=== PATIENT | male | born 1950 | race Caucasian/White ===

== ENCOUNTER → 2018-03-01 | Outpatient (CLI) | payer OTHER ==
[~2018-03-01] MED LIST: AZIT250 PO; BENZ100A PO; CODBUTASA PO; Cialis20 MG; IBUP800; OXYACE5T PO; Omeprazole20 M1; PROACE100 PO
== END ==
LOC: LAB SHORT 08:20 → LAB EV 08:20
DX: J02.9 Acute pharyngitis, unspecified (principal)
CPT/HCPCS: 87070

== ENCOUNTER 2018-12-31 07:00 | Emergency (ER) | payer OTHER ==
[~2018-12-31] VITALS: Ht 172.7 cm; Wt 90.7 kg
[2018-12-31 07:47] LABS: BASOPHILS ABSOLUTE AUTO 0.02 K/mm3 (0.00-0.23); BASOPHILS PERCENT AUTO 0 % (0-2); EOSINOPHILS ABSOLUTE AUTO 0.11 K/mm3 (0.00-0.68); EOSINOPHILS PERCENT AUTO 1 % (0-6); Hematocrit 45.8 % (37.0-53.0); Hemoglobin 15.4 g/dL (13.5-17.5); IMMATURE GRAN ABSOLUTE AUTO 0.03 K/mm3 (0.00-0.10); IMMATURE GRAN PERCENT AUTO 0 % (0-1); LYMPHOCYTES ABSOLUTE AUTO 1.63 K/mm3 (0.84-5.20); LYMPHOCYTES PERCENT AUTO 14 % (21-46); MONOCYTES ABSOLUTE AUTO 1.11 K/mm3 (0.16-1.47); MONOCYTES PERCENT AUTO 10 % (4-13); Mean Corpuscular HGB Conc 33.6 g/dL (31.5-36.5); Mean Corpuscular Volume 86 fL (80-100); NEUTROPHILS ABSOLUTE AUTO 8.62 K/mm3 (1.96-9.15); NEUTROPHILS PERCENT AUTO 75 % (41-73); Platelet Count 260 K/mm3 (150-400); RDW Coefficient Variation 13.6 % (11.7-14.2); RDW Standard Deviation 42.5 fL (35.1-46.3); Red Blood Cell Count 5.31 M/mm3 (4.30-5.90); White Blood Cell Count 11.52 K/mm3 (4.00-11.30)
[2018-12-31 08:08] LABS: Alanine Aminotransfer (ALT/SGP 20 U/L (12-78); Albumin, Blood 4.1 g/dL (3.4-5.0); Albumin/Globulin Ratio 1.2 (0.8-1.8); Alk Phos 47 U/L (50-136); Anion Gap 6 mmol/L (6-16); Aspartate Aminotrans (AST/SGOT 16 U/L (12-37); Bilirubin, Total 0.8 mg/dL (0.1-1.0); Blood Urea Nitrogen 14 mg/dL (8-24); Bun/Creatinine Ratio 15.6 (12.0-20.0); CO2, Blood 24 mmol/L (21-32); Chloride, Blood 106 mmol/L (98-108); Globulin, Blood 3.5 g/dL (2.2-4.0); Glomerular Filtration Rate >60 (60-); Glucose, Blood 111 mg/dL (70-99); Potassium, Blood 4.1 mmol/L (3.5-5.5); Sodium, Blood 136 mmol/L (136-145); Total Protein, Blood 7.6 g/dL (6.4-8.2)
[2018-12-31 08:43] LABS: Source, Urine Clean Catch
[2018-12-31 08:47] LABS: Appearance, Urine Clear (Clear); Bilirubin, Urine Neg (Neg); Blood, Urine Neg (Neg); Color, Urine Yellow (P-Yellow); Glucose Qualitative, Urine Neg (Neg); Ketones, Urine Neg (Neg); Leukocyte Esterase, Urine Neg (Neg); Nitrite, Urine Neg (Neg); Protein, Urine Neg (Neg); Urobilinogen, Urine NORM (Normal)
[2018-12-31] MEDS ORDERED: Augmentin 500-1 EACH PO (08:51)
[2018-12-31] MEDS ORDERED: ONDA4ODT MM (08:51)
[2019-03-11] MEDS ORDERED: BIOTIN1 MG PO (09:38)
== END 2018-12-31 09:18 | disposition home or self-care (01) ==
LOC: ER 07:00
PROVIDERS: Emergency Medicine
DX: K57.32 Diverticulitis of large intestine without perforation or abscess without bleeding (principal)
CPT/HCPCS: 74176; 80053; 81003; 83690; 85025; 96361; 96374; 99284-25; J2405; J7030

== ENCOUNTER 2019-03-19 07:31 | Day surgery (SDC) | payer OTHER ==
[~2019-03-19] VITALS: Ht 172.7 cm; Wt 87.4 kg
[~2019-03-19 07:31] MED LIST changes: +Augmentin 500-1 EACH PO; +BIOTIN1 MG PO; +ONDA4ODT MM
--- NOTE | 2019-03-19 09:36 | NUR ---
03/19/19 0936 Violeta Durant (Zaira PREVIOUS CASE RUNNING LONG. PT NOTIFIED OF DELAY. PT RESTING COMFORTABLY IN BED, AT BEDSIDE. CALL LIGHT WITHIN REACH.
--- NOTE | 2019-03-19 11:00 | NUR ---
03/19/19 1100 Violeta Durant SIMETHICONE USED DURING PROCEDURE.
== END 2019-03-19 11:26 | disposition home or self-care (01) ==
LOC: ORSCSDS 07:31
PROVIDERS: Surgery
PROC: 0DB48ZX Excision of Esophagogastric Junction, Via Natural or Artificial Opening Endoscopic, Diagnostic (ICD-10-PCS; principal; 2019-03-19 09:00)
PROC: 0DB78ZX Excision of Stomach, Pylorus, Via Natural or Artificial Opening Endoscopic, Diagnostic (ICD-10-PCS; principal; 2019-03-19 09:00)
DX: R13.10 Dysphagia, unspecified (principal); K21.0 Gastro-esophageal reflux disease with esophagitis; K29.70 Gastritis, unspecified, without bleeding; K31.7 Polyp of stomach and duodenum; Z87.19 Personal history of other diseases of the digestive system; K57.30 Diverticulosis of large intestine without perforation or abscess without bleeding
CPT/HCPCS: 88305; 88342; J2704; J7120

== ENCOUNTER 2019-05-10 08:01 | Day surgery (SDC) | payer OTHER ==
[~2019-05-10] VITALS: Ht 170.2 cm; Wt 90.0 kg
--- NOTE | 2019-05-10 08:44 | NUR ---
Ambulatory in Day Surgery Surgical site prepped with 2% Chlorhexidine cloth wipe. History, Chart, Medications and Allergies reviewed before start of procedure.Lungs clear T/O to Auscultation. Patient confirms NPO status and agrees with scheduled surgery.
--- NOTE | 2019-05-10 14:04 | NUR ---
"DAY SURGERY RN | DISCHARGED VSS. A/O. PAIN MEDS GIVEN PER ORDERS. NO NAUSEA AT THIS TIME. SITES C/D/I. DISCHARGE INSTRUCTIONS, RX, AND ICE GIVEN TO PATIENT WITH FAMILY PRESENT. NO ISSUES IN DAY SURGERY STEP DOWN. PATIENT ABLE TO AMBULATE SELF. TOLERATING PO FLUIDS AND FOOD. TAKEN IN WHEELCHAIR TO FRONT ENTRANCE BY VOLUNTEER. IS RIDE HOME."
--- NOTE | 2019-05-13 09:14 | NUR ---
05/13/19 0913 Margo Oviedo VERIFICATIONS: EDIT CHART.
== END 2019-05-10 23:02 | disposition home or self-care (01) ==
LOC: ORSCMMR 08:01 → ORD 08:30 → ORSCMMR 08:30
PROVIDERS: Surgery
PROC: 8E0W4CZ Robotic Assisted Procedure of Trunk Region, Percutaneous Endoscopic Approach (ICD-10-PCS; principal; 2019-05-10 09:45)
PROC: 0YUA4JZ Supplement Bilateral Inguinal Region with Synthetic Substitute, Percutaneous Endoscopic Approach (ICD-10-PCS; principal; 2019-05-10 09:45)
DX: K40.20 Bilateral inguinal hernia, without obstruction or gangrene, not specified as recurrent (principal)
CPT/HCPCS: 49650; S2900; C1781; J0330; J0690; J1100; J1885; J2250; J2370; J2405; J2704; J3010; J7120

== ENCOUNTER 2020-04-01 10:34 | Day surgery (SDC) | payer OTHER ==
[~2020-04-01] VITALS: Ht 172.7 cm; Wt 84.9 kg
[~2020-04-01 10:34] MED LIST changes: +LIDO700A20 TOP
--- NOTE | 2020-04-01 11:44 | NUR ---
Ambulatory in Day Surgery History, Chart, Medications and Allergies reviewed before start of procedure. Lungs clear T/O to Auscultation. Patient confirms NPO status and agrees with scheduled surgery. Pre-Op teaching done. Pt verbalizes understanding.
--- NOTE | 2020-04-01 15:34 | NUR ---
1530-HAS SENSATION TO MID THIGH, NO LEG MOVEMENT. 321ML IN BLADDER PER SCANNER
--- NOTE | 2020-04-01 18:03 | NUR ---
ARRIVED FROM PACU AT 1614 PT IS ALERT AND ORIENTED X 4 WITH ON BEDSIDE. S/P RIGHT TKA WITH SPINAL. PT REPORTS NUMBNESS ON BLE, WITH STRONG PEDAL PULSES. PT DENIES SOB, CHEST PAIN/ PRESSURE, NO NAUSEA, NO VOMITING AND NO TINGLINGING SENSATION. PT TOLERATING CRACKERS AND PO FLUIDS, STS HE IS HUNGRY. R KNEE WITH JENI WRAPPED. CLEAN, DRY AND INTACT. VSS. DENIES R KNEE PAIN. IV ON LEFT AC, PATENT AND INFUSING WITH LR AND TXA.
--- NOTE | 2020-04-01 19:20 | NUR ---
SHIFT SUMMARY POD0 RIGHT TKA WITH SPINAL ANES. PT IS AOX4. VSS. PT REPORTS NUMBNESS ON BILATERAL LOW EXTREMITY. HE IS ABLE TO MOVE LEFT EXTREMITY. PT IS TOLERATING PO INTAKE WELL DENIES NAUSEA AND VOMITING. PT ALSO DENIES CHEST PAIN/ PRESSURE, NO TINGLING, NO SOB AND NO PAIN AT THE MOMENT. IV ON LEFT AC IS PATENT AND INFUSING WITH LR FLUIDS. PAIN MEDS ADMINISTERED FOR 15MG TORADOL. R KNEE W/ JENI WRAPPED, CDI. PT IS ON ROOM AIR, SPO2 OF 95. LUNGS ARE CLEAR. PEDAL AND RADIAL PULSE ARE STRONG. NO PASSING FLATUS, NO URINE OUT AND NO BM REPORTED.
[2020-04-02 04:48] LABS: BASOPHILS ABSOLUTE AUTO 0.02 K/mm3 (0.00-0.23); BASOPHILS PERCENT AUTO 0 % (0-2); EOSINOPHILS PERCENT AUTO 0 % (0-6); Hematocrit 40.3 % (37.0-53.0); Hemoglobin 13.2 g/dL (13.5-17.5); IMMATURE GRAN ABSOLUTE AUTO 0.07 K/mm3 (0.00-0.10); IMMATURE GRAN PERCENT AUTO 0 % (0-1); LYMPHOCYTES ABSOLUTE AUTO 0.96 K/mm3 (0.84-5.20); LYMPHOCYTES PERCENT AUTO 6 % (21-46); MONOCYTES ABSOLUTE AUTO 0.75 K/mm3 (0.16-1.47); MONOCYTES PERCENT AUTO 5 % (4-13); Mean Corpuscular HGB 29.4 pg (26.0-34.0); Mean Corpuscular HGB Conc 32.8 g/dL (31.5-36.5); Mean Corpuscular Volume 90 fL (80-100); Mean Platelet Volume 8.8 fL (9.1-12.4); NEUTROPHILS ABSOLUTE AUTO 14.61 K/mm3 (1.96-9.15); NEUTROPHILS PERCENT AUTO 89 % (41-73); Platelet Count 266 K/mm3 (150-400); RDW Coefficient Variation 13.7 % (11.7-14.2); RDW Standard Deviation 45.1 fL (35.1-46.3); Red Blood Cell Count 4.49 M/mm3 (4.30-5.90); White Blood Cell Count 16.41 K/mm3 (4.00-11.30)
[2020-04-02 05:08] LABS: Anion Gap 5 mmol/L (6-16); Blood Urea Nitrogen 20 mg/dL (8-24); Bun/Creatinine Ratio 22.4 (12.0-20.0); CO2, Blood 26 mmol/L (21-32); Calcium, Blood 9.2 mg/dL (8.5-10.1); Chloride, Blood 107 mmol/L (98-108); Creatinine, Blood 0.89 mg/dL (0.60-1.20); Glomerular Filtration Rate >60 (60-); Glucose, Blood 139 mg/dL (70-99); Potassium, Blood 4.6 mmol/L (3.5-5.5); Sodium, Blood 138 mmol/L (136-145)
--- NOTE | 2020-04-02 07:07 | NUR ---
SUMMARY PT VOIDING. TOLERATING PO. DENIES N/T TO EXT.PO PAIN MEDS REPORTED TO KEEP PAIN FROM RISING ABOVE LEVEL 2.PT UP IN HALLS WITH WALKER AND CONFERENCE SERVICES COORDINATOR. PT HOPING FOR DISCHARGE TODAY.
[2020-04-02] MEDS ORDERED: Aspir 8181 MG PO (07:28)
[2020-04-02] MEDS ORDERED: HYDR1TAB94 PO (07:32)
[2020-04-02] MEDS ORDERED: PROM25 PO (07:33)
[2020-04-02] MEDS ORDERED: SULTRIDS PO (07:34)
--- NOTE | 2020-04-02 12:41 | NUR ---
PAIN PT HAS HAD ELEVATED PAIN SINCE WORKING WITH THERAPY THIS MORNING. HE RATED HIS PAIN AT 10/10 AFTER WORKING WITH THERAPY. PT WAS SHAKING AND UNSTEADY ON HIS FEET AFTER THERAPY. HE ALSO REPORTED SOME NAUSEA AND C/O HICCUPS. PO PAIN MEDICATION WAS CHANGED TO ULTRAM SINCE PT WAS CONCERNED THAT NORCO MAY HAVE BEEN CAUSING HICCUPS. PT WAS GIVEN DILAUDID IV, ZOFRAN AND TORADOL, HE NOW RATES HIS PAIN AT 5/10 AND STATES IT IS TOLERABLE. NAUSEA IS BETTER WHEN PT IS AT REST BUT HAS SOME NAUSEA WHEN HE AMBULATES. HE STILL HAS SOME DIFFICULTY AMBULATING R/T PAIN AND IS SOME WHAT UNSTEADY WHEN BEARING WEAIGHT ON HIS OPPERATIVE LEG. WILL CONTINUE TO MONITOR.
--- NOTE | 2020-04-02 19:40 | NUR ---
SHIFT SUMMARY PT AOX4. HE DID NOT GET ENOUGH SLEEP LAST NIGHT. PT REPORTS WALKING IN THE HALLWAY X 3 LAST NIGHT. THIS MORNING HE WAS C/O OF SEVERE PAIN. PAIN MED GIVEN PER MD ORDER. PT STARTED EXPERIENCING HICCUPS, POSSIBLE ADVERSE EFFECT FROM NARCOTIC. REGLAN WAS ADMINSTERED, IT HELPED WITH HICCUPS AND INDIGESTION. PT TOLEARTATING PO INTAKE. ADEQUATE URINE OUTPUT. PT REPORTS FLATUS. HE DENIES NAUSEA, VOMITING, DIARRHEA, SOB, CHEST PAIN/PRESSURE AND NO DIZZINESS.
--- NOTE | 2020-04-03 05:18 | NUR ---
SHIFT SUMMARY R TKA POD2, A/O X4, VSS, TOLERATING PO, AMBULATING, VOIDING WELL, C/O SORE AREA IN KNEE, POLAR PACK IN PLACE, PAIN WELL MANAGED (SEE EMAR). CALL LIGHT IN REACH, WILL CONTINUE TO MONITOR AND REPORT TO ONCOMING DAY RN.
--- NOTE | 2020-04-03 14:18 | NUR ---
DC'D HOME, DC INSTRUCTIONS GIVEN TO PT AND , VERBALIZED UNDERSTANDING, PAIN MED RX CHANGED TO DILAUDID PT'S PICKED UP RX FROM DR. MAK'S OFFICE AND HAD IT FILLED, PT'S SAID SHE BROUGHT BACK PREVIOUSLY FILLED OXYCODONE TABS BACK TO [facility].
== END 2020-04-03 13:32 | disposition home or self-care (01) ==
LOC: ORSCMMR 10:34 → ORD 14:00 → ORSCMMR 14:00 → SURS 16:08 → ORD 17:15 → SURS 04-03 13:32 → ORSCMMR 04-03 13:32
PROVIDERS: Orthopaedic Surgery
DX: M17.11 Unilateral primary osteoarthritis, right knee (principal); E78.5 Hyperlipidemia, unspecified
CPT/HCPCS: 36415; 73560-RT; 80048; 83735; 85025; 88300; 97110; 97116; 97161; A9270; A9270-GY; C1713; C1776; J0171; J0690; J0735; J1100; J1170; J1885; J2250; J2370; J2405; J2704; J2765; J2795; J3010; J7120

== ENCOUNTER 2020-10-15 06:36 | Day surgery (SDC) | payer OTHER ==
[~2020-10-15] VITALS: Ht 172.7 cm; Wt 88.7 kg
[~2020-10-15 06:36] MED LIST changes: +Aspir 8181 MG PO; +HYDR1TAB94 PO; +PROM25 PO; +SULTRIDS PO
== END 2020-10-15 10:39 | disposition home or self-care (01) ==
LOC: ORSCSDS 06:36
PROVIDERS: Otolaryngology
PROC: 09BM0ZZ Excision of Nasal Septum, Open Approach (ICD-10-PCS; principal; 2020-10-15 08:00)
PROC: 09SL4ZZ Reposition Nasal Turbinate, Percutaneous Endoscopic Approach (ICD-10-PCS; principal; 2020-10-15 08:00)
DX: J34.2 Deviated nasal septum (principal); J34.3 Hypertrophy of nasal turbinates
CPT/HCPCS: J0171; J1100; J2765; J7120

== ENCOUNTER → 2021-09-21 | Outpatient (CLI) | payer OTHER | END | disposition home or self-care (01) | LOC: LAB SHORT 11:38 → PLD 11:38 | DX: L57.0 Actinic keratosis (principal) | CPT/HCPCS: 88305 ==

== ENCOUNTER → 2024-01-21 | Outpatient (CLI) | payer OTHER ==
[2024-01-21 10:42] LABS: BASOPHILS ABSOLUTE AUTO 0.02 K/mm3 (0.00-0.23); BASOPHILS PERCENT AUTO 0 % (0-2); EOSINOPHILS ABSOLUTE AUTO 0.14 K/mm3 (0.00-0.68); EOSINOPHILS PERCENT AUTO 3 % (0-6); Hematocrit 44.9 % (37.0-53.0); Hemoglobin 15.1 g/dL (13.5-17.5); IMMATURE GRAN ABSOLUTE AUTO 0.01 K/mm3 (0.00-0.10); IMMATURE GRAN PERCENT AUTO 0 % (0-1); LYMPHOCYTES PERCENT AUTO 21 % (21-46); MONOCYTES ABSOLUTE AUTO 0.46 K/mm3 (0.16-1.47); MONOCYTES PERCENT AUTO 8 % (4-13); Mean Corpuscular HGB 29.7 pg (26.0-34.0); Mean Corpuscular HGB Conc 33.6 g/dL (31.5-36.5); Mean Corpuscular Volume 88 fL (80-100); Mean Platelet Volume 8.5 fL (9.1-12.4); NEUTROPHILS ABSOLUTE AUTO 3.77 K/mm3 (1.96-9.15); NEUTROPHILS PERCENT AUTO 67 % (41-73); Platelet Count 249 K/mm3 (150-400); RDW Coefficient Variation 13.6 % (11.7-14.2); RDW Standard Deviation 44.3 fL (35.1-46.3); Red Blood Cell Count 5.08 M/mm3 (4.30-5.90)
[2024-01-21 10:54] LABS: Albumin, Blood 3.9 g/dL (3.4-5.0); Bilirubin, Total 0.3 mg/dL (0.1-1.0); Bun/Creatinine Ratio 14.3 (12.0-20.0); Calcium, Blood 9.4 mg/dL (8.5-10.1); Creatinine, Blood 0.98 mg/dL (0.60-1.20); Globulin, Blood 3.8 g/dL (2.2-4.0); Total Protein, Blood 7.7 g/dL (6.4-8.2)
== END | disposition home or self-care (01) ==
LOC: LAB SHORT 10:38 → LAB 10:38
PROVIDERS: Physician Assistant
DX: R10.32 Left lower quadrant pain (principal)
CPT/HCPCS: 80053; 85025

== ENCOUNTER 2024-07-02 06:58 | Emergency (ER) | payer OTHER ==
[~2024-07-02] VITALS: Ht 172.7 cm; Wt 83.9 kg
[2024-07-02 09:28] LABS: BASOPHILS ABSOLUTE AUTO 0.04 K/mm3 (0.00-0.23); BASOPHILS PERCENT AUTO 1 % (0-2); EOSINOPHILS ABSOLUTE AUTO 0.11 K/mm3 (0.00-0.68); EOSINOPHILS PERCENT AUTO 2 % (0-6); Hematocrit 45.1 % (37.0-53.0); Hemoglobin 15.5 g/dL (13.5-17.5); IMMATURE GRAN ABSOLUTE AUTO 0.02 K/mm3 (0.00-0.10); IMMATURE GRAN PERCENT AUTO 0 % (0-1); LYMPHOCYTES ABSOLUTE AUTO 2.05 K/mm3 (0.84-5.20); LYMPHOCYTES PERCENT AUTO 28 % (21-46); MONOCYTES PERCENT AUTO 8 % (4-13); Mean Corpuscular HGB 29.8 pg (26.0-34.0); Mean Corpuscular HGB Conc 34.4 g/dL (31.5-36.5); Mean Corpuscular Volume 87 fL (80-100); Mean Platelet Volume 8.2 fL (9.1-12.4); NEUTROPHILS PERCENT AUTO 61 % (41-73); Platelet Count 299 K/mm3 (150-400); RDW Coefficient Variation 13.7 % (11.7-14.2); RDW Standard Deviation 43.2 fL (35.1-46.3); White Blood Cell Count 7.22 K/mm3 (4.00-11.30)
[2024-07-02 09:51] LABS: Albumin/Globulin Ratio 1.1 (0.8-1.8); Bilirubin, Total 0.5 mg/dL (0.1-1.0); Bun/Creatinine Ratio 18.5 (12.0-20.0); Calcium, Blood 9.4 mg/dL (8.5-10.1); Creatinine, Blood 0.98 mg/dL (0.60-1.20); Globulin, Blood 3.5 g/dL (2.2-4.0); Potassium, Blood 4.4 mmol/L (3.5-5.5); Total Protein, Blood 7.5 g/dL (6.4-8.2)
[2024-07-02] MEDS ORDERED: BENZONATATE100 MG PO (10:07)
[2024-07-02] MEDS ORDERED: ALBU90OI INH (10:07)
[2024-07-02] MEDS ORDERED: ZYRTEC10 M1 PO (11:11)
[2024-07-02 11:16] LABS: Adenovirus Not Detected (NOT DETECT); Bordetella pertussis Not Detected (NOT DETECT); Chlamydophila pneumoniae Not Detected (NOT DETECT); Coronavirus 229E Not Detected (NOT DETECT); Coronavirus HKU1 Not Detected (NOT DETECT); Coronavirus NL63 Not Detected (NOT DETECT); Coronavirus OC43 Not Detected (NOT DETECT); Human Metapneumovirus Not Detected (NOT DETECT); Human Rhinovirus/Enterovirus Not Detected (NOT DETECT); Influenza A/2009-H1 Not Detected (NOT DETECT); Influenza A/H1 Not Detected (NOT DETECT); Influenza A/H3 Not Detected (NOT DETECT); Influenza B Not Detected (NOT DETECT); Mycoplasma pneumoniae Not Detected (NOT DETECT); Parainfluenza Virus 1 Not Detected (NOT DETECT); Parainfluenza Virus 2 Not Detected (NOT DETECT); Parainfluenza Virus 3 Not Detected (NOT DETECT); Parainfluenza Virus 4 Not Detected (NOT DETECT); Respiratory Syncytial Virus Not Detected (NOT DETECT); SARS-Cov-2 (COVID-19), BioFire Not Detected (NOT DETECT)
[2024-07-02 12:00] VITALS: BP 130/69
== END 2024-07-02 12:11 | disposition home or self-care (01) ==
LOC: ER 06:58
PROVIDERS: Emergency Medicine
DX: J06.9 Acute upper respiratory infection, unspecified (principal)
CPT/HCPCS: 0202U; 71046; 80053; 83880; 84484; 85025; 93005; 93010; 99284-25

== ENCOUNTER 2024-11-28 12:33 | Day surgery (SDC) | payer OTHER ==
[~2024-11-28] VITALS: Ht 172.7 cm; Wt 83.8 kg
[~2024-11-28 12:33] MED LIST changes: +ALBU90OI INH; +BENZONATATE100 MG PO; +Lactated Ringer's 1,000 ML IV ONE; +ZYRTEC10 M1 PO; +propofoL 50 ML IV ONE
[2024-11-28] MEDS ORDERED: Lactated Ringer's 1,000 ML IV ONE (14:21)
[2024-11-28 15:43] VITALS: BP 115/66
== END 2024-11-28 15:25 | disposition home or self-care (01) ==
LOC: ORSCSDS 12:33
PROVIDERS: Surgery
PROC: 0DJD8ZZ Inspection of Lower Intestinal Tract, Via Natural or Artificial Opening Endoscopic (ICD-10-PCS; principal; 2024-11-28 14:30)
DX: Z12.11 Encounter for screening for malignant neoplasm of colon (principal); K57.30 Diverticulosis of large intestine without perforation or abscess without bleeding; Z79.899 Other long term (current) drug therapy
CPT/HCPCS: J2704; J7120